=== PATIENT | male | born 2000 | race Caucasian/White ===

== ENCOUNTER 2024-03-04 17:58 | Emergency (ER) | payer BC, SELFPAY ==
[2024-03-04 17:58] VITALS: BP 142/74; PULSE 65; RESP 16; TEMP 36.3; O2SAT 99
--- NOTE | 2024-03-04 18:13 | ECG_ITS ---
Test Date: 2024-03-04 18:25:49 Measurements Intervals [place] Rate: 66 P: 62 CT: 143 QRS: 75 QRSD: 109 T: 52 QT: 404 QTc: 423 Interpretive Statements SINUS RHYTHM INCOMPLETE RIGHT BUNDLE BRANCH BLOCK BORDERLINE ECG No previous ECG available for comparison Electronically Signed On 03-04-2024 19:37:22 CDT by John Linn D.O.
[2024-03-04 18:14] VITALS: BP 142/74; PULSE 65; RESP 16; TEMP 36.3; O2SAT 99
[2024-03-04 18:14] LABS: Glucose Point of Care 137 mg/dl (65-105)
--- NOTE | 2024-03-04 18:21 | ED.GENADULT ---
HPI - General Adult General Chief complaint: Syncope Stated complaint: syncopal episode Time Seen by Provider: 03/04/24 18:10 History of Present Illness HPI narrative: Ludwin is a previously healthy 23M that presented to the ED after an episode of syncope. He had been at the pool a couple hour and was eating dinner with his grandparents when he slowly went down and was out for 15-30 seconds. He came to and felt like he woke from a nap. He did not bite his cheek/tongue or have in continence. There were no palpitations, chest pain or dyspnea. Related Data Home Medications Medication Instructions Recorded Confirmed No Home Medications 01/10/23 03/04/24 Allergies Allergy/AdvReac Type Severity Reaction Status Date / Time sulfamethoxazole Allergy Unknown Verified 03/04/24 18:13 trimethoprim Allergy Unknown Verified 03/04/24 18:13 Review of Systems Review of Systems: All systems reviewed & are unremarkable except as noted in HPI and below PMFSH Family History Family History Father Hypertension Social History Social History Smoking status: Never smoker Second hand tobacco smoke exposure: No Alcohol intake: never Substance use: never Substance use type: does not use Living arrangements: with family Occupation/Education: occupation Gender identity (if verbalized by the patient): Male Sexual Orientation (if Verbalized by the Patient): Straight or Heterosexual Exam Const: General: cooperative, healthy appearing, comfortable, no acute distress, well developed, alert, awake and Physically active Orientation/consciousness: oriented to person, oriented to place and oriented to time HENMT: Head: normal to inspection, normocephalic and atraumatic Ears: hearing grossly normal bilaterally and external ears normal Face/Nose/Sinus: Normal external nose present Other: Dry mucous membranes. Eyes: General: appearance normal, both eyes and all related structures Periorbital: periorbital findings normal Sclera: sclerae normal Pupils: Equal, round and reactive pupils present Neck: Neck: normal visual inspection Chest: Chest palpation & inspection: normal inspection of the chest Resp: Effort & Inspection: normal respiratory effort, able to speak in complete sentences and no respiratory distress Auscultation: clear to auscultation bilaterally Cardio: Jugular venous distension: no JVD Rate: regular rate Rhythm: regular rhythm GI: Inspection: normal to inspection GI Palp: Yes Soft to palpation Auscultation: normal bowel sounds Skin: General skin exam: normal color and no rashes or lesions noted Neuro: General: oriented to person, oriented to place and oriented to time Cranial nerves: Yes Equal, round and reactive pupils present Extrem: General: normal to inspection Course Course Emergency Course: Ordered labs and EKG as well as fluids EKG showed NSR with a rate of 66, normal axis and no ST elevation/depression CBC and CMP were largely unremarkable Showell Syncope score of , low risk for serious outcome Vital Signs Vital signs: Vital Signs Temperature 97.4 F L 03/04/24 17:58 Pulse Rate 65 03/04/24 17:58 Respiratory Rate 16 03/04/24 17:58 Blood Pressure 142/74 H 03/04/24 17:58 Pulse Oximetry 99 03/04/24 17:58 Oxygen Delivery Room Air 03/04/24 17:58 Temperature 97.4 F L 03/04/24 18:14 Pulse Rate 65 03/04/24 18:14 Respiratory Rate 16 03/04/24 18:14 Blood Pressure 142/74 H 03/04/24 18:14 Pulse Oximetry 99 03/04/24 18:14 Oxygen Delivery Room Air 03/04/24 18:14 Medical Decision Making Vital Signs Vital Signs: Vital Signs Temperature 97.4 F L 03/04/24 17:58 Pulse Rate 65 03/04/24 17:58 Respiratory Rate 16 03/04/24 17:58 Blood Pressure 142/74 H 03/04/24 17:58 Pulse Oximetry 99 03/04/24 17:58 Oxygen Deliv
[2024-03-04] MEDS: SODIUM CHLORIDE 0.9% IV 1,000 ML 999 ML IV CONT (18:36)
[2024-03-04 18:44] LABS: Basophils Absolute Auto 0.02 K/mm3 (0.00-0.10); Basophils Percent Auto 0.3 % (0.0-1.0); Eosinophils Absolute Auto 0.19 K/mm3 (0.02-0.50); Eosinophils Percent Auto 2.8 % (1.0-6.0); Hematocrit 40.7 % (40.0-54.0); Hemoglobin 14.4 g/dL (14.0-18.0); Immature Granulocyte Absolute 0.01 K/mm3 (0.00-0.00); Immature Granulocyte Percent A 0.1 % (0.0-0.0); Lymphocytes Absolute Auto 3.17 K/mm3 (1.10-4.50); Lymphocytes Percent Auto 47.5 % (18.0-42.0); Mean Corpuscular HGB Conc 35.4 g/dL (32-36); Mean Corpuscular Volume 84.8 fL (78.0-102.0); Mean Platelet Volume 9.5 fl (8.7-11.0); Monocytes Absolute Auto 0.52 K/mm3 (0.10-0.90); Monocytes Percent Auto 7.8 % (2.0-11.0); Neutrophils Absolute Auto 2.77 K/mm3 (1.70-7.20); Neutrophils Percent Auto 41.5 % (50.0-70.0); Platelet Count Result 280 K/mm3 (150-420); Red Cell Distribution Width 11.9 % (11.6-14.4); White Blood Count 6.7 K/mm3 (4.8-10.8)
[2024-03-04 18:57] LABS: Alanine Aminotransferase 39 U/L (16-63); Albumin Level 4.2 g/dL (3.4-5.0); Alkaline Phosphatase 58 U/L (46-116); Anion Gap 8 mmol/L (4-12); Aspartate Amino Transferase 25 U/L (15-37); Bilirubin,Total 0.7 mg/dL (0.00-1.00); Blood Urea Nitrogen 18 mg/dL (7-18); Calcium 9.2 mg/dL (8.5-10.1); Carbon Dioxide 28 mmol/L (21-32); Chloride 101 mmol/L (98-108); Estimated CRCL calculation 125 ml/min; Estimated Glomerular Filt Rate > 60; Glucose 106 mg/dL (70-99); Osmolality Calculated 285 mOsm/kg (285-295); Potassium 3.6 mmol/L (3.5-5.1); Sodium 137 mmol/L (136-145); Total Protein 7.6 g/dL (6.4-8.2)
[2024-03-04 19:28] VITALS: BP 140/85; PULSE 87; RESP 18; TEMP 36.6; O2SAT 98
== END 2024-03-04 19:28 | disposition home or self-care (01) ==
PROVIDERS: Emergency Provider Family Medicine; PCP Family Medicine
DX: R55 Syncope and collapse (principal)
CPT/HCPCS: 36415; 80053; 82948; 85025; 93005; 96360; 99283; J7030